=== PATIENT | male | born 1955 | race Two or more races ===

== ENCOUNTER 2024-09-24 22:35 | Emergency (ER) | payer OTHER, BC ==
[~2024-09-24] VITALS: Ht 175.3 cm; Wt 74.8 kg
[2024-09-24] MEDS ORDERED: MELOXICAM15 MG PO (23:24)
[2024-09-25] MEDS ORDERED: KETOROLAC TROMETHAMINE 60 MG VIAL IM STA (03:48)
[2024-09-25] MEDS ORDERED: OxyCODONE HCL/APAP UD (PERCOCET) PO STA (03:49)
[2024-09-25] MEDS ORDERED: DEXAMETHASONE SODIUM PHOSPHATE 4 MG/ML VIAL IM STA (03:49)
== END 2024-09-25 04:40 | disposition home or self-care (01) ==
LOC: ER 22:37
DX: M54.16 Radiculopathy, lumbar region (principal); Z88.8 Allergy status to other drugs, medicaments and biological substances
CPT/HCPCS: 96372; 99283; J1100; J1885